=== PATIENT | female | born 1955 | race Caucasian/White ===

== ENCOUNTER 2017-09-18 17:18 | Emergency (ER) | payer MEDICARE, MEDICAID ==
[2017-09-18 17:38] LABS: BASO % 0.5 % (0-6); EOS % 3.5 % (0-6); GRAN % 55.5 % (47-80); HEMATOCRIT 39.5 % (35.0-47.0); HEMOGLOBIN 12.8 gm/dl (11.6-16.0); MEAN CELL VOLUME 89.8 fl (81-97); MEAN CORPUSCULAR HEMOGLOBIN 29.1 pg (27-33); MEAN CORPUSCULAR HGB CONC 32.4 g/dl (32-36); MEAN PLATELET VOLUME 8.5 fl (7.4-10.4); MONO % 11.5 % (0-9); PLATELET COUNT 384 K/uL (130-400); RED CELL DISTRIBUTION WIDTH 14.2 % (11.5-14.5); WHITE BLOOD COUNT W/O DIFF 5.7 K/uL (4.2-12.2)
--- NOTE | 2017-09-18 17:42 | Emergency Department Record ---
History of Present Illness - General Chief complaint: Head Injury Stated complaint: HEAD WOUND Time Seen by Provider: 09/18/17 17:22 Source: Patient - History of Present Illness Initial comments: patient slipped on a dog toy and hit the back of head and posterior right chest. alert NO LOC , no nausea or vomiting. ambulating without problems. - Related Data Home Medications Medication Instructions Recorded Confirmed Last Taken Alprazolam 1 mg PO ASDIR 09/18/17 09/18/17 Unknown Atorvastatin Calcium 40 mg PO DAILY 09/18/17 09/18/17 Unknown Bisacodyl [Laxative] 5 mg PO QHS 09/18/17 09/18/17 Unknown Carvedilol [Coreg] 3.125 mg PO BID 09/18/17 09/18/17 Unknown Citalopram Hydrobromide [Celexa] 40 mg PO DAILY 09/18/17 09/18/17 Unknown Hydrocodone/Acetaminophen 1 tab PO Q6H PRN 09/18/17 09/18/17 Unknown [Hydrocodone/Acetaminophen 7.5mg/325mg] Lisinopril 2.5 mg PO DAILY 09/18/17 09/18/17 Unknown Methyl Salicylate/Menthol 2 each TP QHS 09/18/17 09/18/17 Unknown [Salonpas Patch] Metoclopramide HCl 10 mg PO BID 09/18/17 09/18/17 Unknown Multivitamin [Multi-Vitamin Daily] 1 each PO DAILY 09/18/17 09/18/17 Unknown Nitroglycerin 0.4 mg SL ASDIR 09/18/17 09/18/17 Unknown Orphenadrine Citrate [Norflex] 100 mg PO BID 09/18/17 09/18/17 Unknown Triamterene/Hydrochlorothiazid 1 each PO DAILY 09/18/17 09/18/17 Unknown [Triamterene-Hctz 37.5-25 mg Cp] Vitamin E 400 unit PO DAILY 09/18/17 09/18/17 Unknown Warfarin Sodium 3 mg PO DAILY 09/18/17 09/18/17 Unknown Zolpidem Tartrate 10 mg PO ASDIR 09/18/17 09/18/17 Unknown Allergies/Adverse reactions: Allergies Allergy/AdvReac Type Severity Reaction Status Date / Time amoxicillin Allergy PT UNSURE Verified 09/18/17 17:39 OF REACTION aspirin Allergy PT UNSURE Verified 09/18/17 17:39 OF REACTION azithromycin Allergy PT UNSURE Verified 09/18/17 17:39 OF REACTION Beta-Blockers Allergy PT UNSURE Verified 09/18/17 17:39 (Beta-Adrenergic Bloc OF REACTION bismuth subsalicylate Allergy PT UNSURE Verified 09/18/17 17:39 OF REACTION carvedilol Allergy PT UNSURE Verified 09/18/17 17:39 OF REACTION celecoxib Allergy PT UNSURE Verified 09/18/17 17:39 OF REACTION cholestyramine Allergy PT UNSURE Verified 09/18/17 17:39 OF REACTION clopidogrel Allergy PT UNSURE Verified 09/18/17 17:39 OF REACTION cyclobenzaprine Allergy PT UNSURE Verified 09/18/17 17:39 OF REACTION doxycycline Allergy PT UNSURE Verified 09/18/17 17:39 OF REACTION eletriptan Allergy PT UNSURE Verified 09/18/17 17:39 OF REACTION fluoxetine Allergy PT UNSURE Verified 09/18/17 17:39 OF REACTION flurbiprofen Allergy PT UNSURE Verified 09/18/17 17:39 OF REACTION ibuprofen Allergy PT UNSURE Verified 09/18/17 17:39 OF REACTION isosorbide Allergy PT UNSURE Verified 09/18/17 17:39 OF REACTION levofloxacin Allergy PT UNSURE Verified 09/18/17 17:39 OF REACTION lisinopril Allergy PT UNSURE Verified 09/18/17 17:39 OF REACTION metaxalone Allergy PT UNSURE Verified 09/18/17 17:39 OF REACTION montelukast Allergy PT UNSURE Verified 09/18/17 17:39 OF REACTION polyethylene glycol 3350 Allergy PT UNSURE Verified 09/18/17 17:39 OF REACTION prednisone Allergy PT UNSURE Verified 09/18/17 17:39 OF REACTION propranolol Allergy PT UNSURE Verified 09/18/17 17:39 OF REACTION sertraline Allergy PT UNSURE Verified 09/18/17 17:39 OF REACTION sucrose Allergy PT UNSURE Verified 09/18/17 17:39 OF REACTION topiramate Allergy PT UNSURE Verified 09/18/17 17:39 OF REACTION Review of Systems Reviewed: No additional complaints except as noted below Constitutional: Reports: As per HPI. Denies: Chills, Fever, Malaise, Night sweats, Weakness, Weight change Eyes: Reports: As per HPI. Denies: Eye discharge, Eye pain, Photophobia, Vision change ENT: Reports: As per HPI. Denies: Congestion, Dental pain, Ear pain, Epistaxis , Hearing loss, Throat pain Respiratory: Reports: As per HPI. Denies: Cough, Dyspnea, Hemoptysis, Stridor, Wheezes Cardiovascular: Reports: As per HPI. Denies: Arrhythmia, Chest pain, Dyspnea on exertion, Edema, Murmurs, Orthopnea, Palpitations, Paroxysmal nocturnal dyspnea, Rheumatic Fever, Syncope Endocrine: Reports: As per HPI. Denies: Fatigue, Heat or cold intolerance, Polydipsia, Polyuria Gastrointestinal: Reports: As per HPI. Denies: Abdominal pain, Constipation, Diarrhea, Hematemesis, Hematochezia, Melena, Nausea, Vomiting Genitourinary: Reports: As per HPI. Denies: Abnormal menses, Discharge, Dyspareunia, Dysuria, Frequency, Hematuria, Incontinence, Retention, Urgency Musculoskeletal: Reports: As per HPI. Denies: Arthralgia, Back pain, Gout, Joint swelling, Myalgia, Neck pain Skin: Reports: As per HPI. Denies: Bruising, Change in color, Change in hair/ nails, Lesions, Pruritus, Rash Neurological: Reports: As per HPI. Denies: Abnormal gait, Confusion, Headache, Numbness, Paresthesias, Seizure, Tingling, Tremors, Vertigo, Weakness Psychiatric: Reports: As per HPI. Denies: Anxiety, Auditory hallucinations, Depression, Homicidal thoughts, Suicidal thoughts, Visual hallucinations Hematological/Lymphatic: Reports: As per HPI. Denies: Anemia, Blood Clots, Easy bleeding, Easy bruising, Swollen glands Physical Exam - General General Appearance: Alert, Oriented x3, Cooperative, No acute distress - Head Head exam: Normal inspection - Eye Eye exam: Normal appearance, PERRL Pupils: Normal accommodation - ENT ENT exam: Normal exam, Mucous membranes moist, Normal external ear exam, Normal orophraynx, TM's normal bilaterally Ear exam: Normal external inspection. negative: External canal tenderness Nasal Exam: Normal inspection. negative: Discharge, Sinus tenderness Mouth exam: Normal external inspection, Tongue normal Teeth exam: Normal inspection. negative: Dental caries Throat exam: Normal inspection. negative: Tonsillar erythema, Tonsillar exudate - Neck Neck exam: Normal inspection, Full ROM. negative: Tenderness - Respiratory Respiratory exam: Normal lung sounds bilaterally. negative: Respiratory distress - Cardiovascular Cardiovascular Exam: Regular rate, Normal rhythm, Normal heart sounds - GI/Abdominal GI/Abdominal exam: Soft, Normal bowel sounds. negative: Tenderness - Rectal Rectal exam: Deferred - exam: Deferred - Extremities Extremities exam: Normal inspection, Full ROM, Normal capillary refill. negative: Tenderness - Back Back exam: Reports: Normal inspection, Full ROM. Denies: Muscle spasm, Rash noted, Tenderness - Neurological Neurological exam: Alert, Normal gait, Oriented X3, Reflexes normal - Psychiatric Psychiatric exam: Normal affect, Normal mood - Skin Skin exam: Dry, Intact, Normal color, Warm Medical Decision Making - Data Complexity MDM Data: Labs Ordered and/or Reviewed (INR 4.5, K 3.1), X-Ray Ordered and/or Reviewed (CT head and neck negative for fractures) - Lab Data Result diagrams: 09/18/17 17:30 09/18/17 17:30 Lab Results 09/18/17 Range/Units 17:30 WBC 5.7 (4.2-12.2) K/uL RBC 4.40 (3.80-5.40) M/uL Hgb 12.8 (11.6-16.0) gm/dl Hct 39.5 (35.0-47.0) % MCV 89.8 (81-97) fl MCH 29.1 (27-33) pg MCHC 32.4 (32-36) g/dl RDW 14.2 (11.5-14.5) % Plt Count 384 (130-400) K/uL MPV 8.5 (7.4-10.4) fl Gran % 55.5 (47-80) % Lymphocytes % 29.0 (16-45) % Monocytes % 11.5 H (0-9) % Eosinophils % 3.5 (0-6) % Basophils % 0.5 (0-6) % Disposition Clinical Impression: Contusion of head Qualifiers: Encounter type: initial encounter Contusion of head detail: scalp Qualified Code(s): S00.03XA - Contusion of scalp, initial encounter Cervical strain Qualifiers: Encounter type: initial encounter Qualified Code(s): S16.1XXA - Strain of muscle, fascia and tendon at neck level, initial encounter Contusion, chest wall Qualifiers: Encounter type: initial encounter Laterality: right Qualified Code(s): S20.211A - Contusion of right front wall of thorax, initial encounter Disposition: Home, Self-Care Condition: (1) Good Instructions: Concussion (ED), Contusion in Adults (ED) Additional Instructions: stop coumadin till saturday No aspirin follow up with family in one week any symptoms return to ED Forms: Patient Portal Access Time of Disposition: 18:08 Quality - Quality Measures Quality Measures: N/A - Blood Pressure Screening Does Patient Have Any of the Following: No Blood Pressure Classification: Pre-Hypertensive BP Reading Systolic Measurement: 127 Diastolic Measurement: 72 Screening for High Blood Pressure: < Pre-Hypertensive BP, F/U Documented > [ G8950] Pre-Hypertensive Follow-up Interventions: Referral to alternative/primary care provider.
--- NOTE | 2017-09-18 17:43 | Emergency Department Record ---
History of Present Illness - General Chief complaint: Head Injury Stated complaint: HEAD WOUND Time Seen by Provider: 09/18/17 17:22 - Related Data Home Medications Medication Instructions Recorded Confirmed Last Taken Alprazolam 1 mg PO ASDIR 09/18/17 09/18/17 Unknown Atorvastatin Calcium 40 mg PO DAILY 09/18/17 09/18/17 Unknown Bisacodyl [Laxative] 5 mg PO QHS 09/18/17 09/18/17 Unknown Carvedilol [Coreg] 3.125 mg PO BID 09/18/17 09/18/17 Unknown Citalopram Hydrobromide [Celexa] 40 mg PO DAILY 09/18/17 09/18/17 Unknown Hydrocodone/Acetaminophen 1 tab PO Q6H PRN 09/18/17 09/18/17 Unknown [Hydrocodone/Acetaminophen 7.5mg/325mg] Lisinopril 2.5 mg PO DAILY 09/18/17 09/18/17 Unknown Methyl Salicylate/Menthol 2 each TP QHS 09/18/17 09/18/17 Unknown [Salonpas Patch] Metoclopramide HCl 10 mg PO BID 09/18/17 09/18/17 Unknown Multivitamin [Multi-Vitamin Daily] 1 each PO DAILY 09/18/17 09/18/17 Unknown Nitroglycerin 0.4 mg SL ASDIR 09/18/17 09/18/17 Unknown Orphenadrine Citrate [Norflex] 100 mg PO BID 09/18/17 09/18/17 Unknown Triamterene/Hydrochlorothiazid 1 each PO DAILY 09/18/17 09/18/17 Unknown [Triamterene-Hctz 37.5-25 mg Cp] Vitamin E 400 unit PO DAILY 09/18/17 09/18/17 Unknown Warfarin Sodium 3 mg PO DAILY 09/18/17 09/18/17 Unknown Zolpidem Tartrate 10 mg PO ASDIR 09/18/17 09/18/17 Unknown Allergies/Adverse reactions: Allergies Allergy/AdvReac Type Severity Reaction Status Date / Time amoxicillin Allergy PT UNSURE Verified 09/18/17 17:39 OF REACTION aspirin Allergy PT UNSURE Verified 09/18/17 17:39 OF REACTION azithromycin Allergy PT UNSURE Verified 09/18/17 17:39 OF REACTION Beta-Blockers Allergy PT UNSURE Verified 09/18/17 17:39 (Beta-Adrenergic Bloc OF REACTION bismuth subsalicylate Allergy PT UNSURE Verified 09/18/17 17:39 OF REACTION carvedilol Allergy PT UNSURE Verified 09/18/17 17:39 OF REACTION celecoxib Allergy PT UNSURE Verified 09/18/17 17:39 OF REACTION cholestyramine Allergy PT UNSURE Verified 09/18/17 17:39 OF REACTION clopidogrel Allergy PT UNSURE Verified 09/18/17 17:39 OF REACTION cyclobenzaprine Allergy PT UNSURE Verified 09/18/17 17:39 OF REACTION doxycycline Allergy PT UNSURE Verified 09/18/17 17:39 OF REACTION eletriptan Allergy PT UNSURE Verified 09/18/17 17:39 OF REACTION fluoxetine Allergy PT UNSURE Verified 09/18/17 17:39 OF REACTION flurbiprofen Allergy PT UNSURE Verified 09/18/17 17:39 OF REACTION ibuprofen Allergy PT UNSURE Verified 09/18/17 17:39 OF REACTION isosorbide Allergy PT UNSURE Verified 09/18/17 17:39 OF REACTION levofloxacin Allergy PT UNSURE Verified 09/18/17 17:39 OF REACTION lisinopril Allergy PT UNSURE Verified 09/18/17 17:39 OF REACTION metaxalone Allergy PT UNSURE Verified 09/18/17 17:39 OF REACTION montelukast Allergy PT UNSURE Verified 09/18/17 17:39 OF REACTION polyethylene glycol 3350 Allergy PT UNSURE Verified 09/18/17 17:39 OF REACTION prednisone Allergy PT UNSURE Verified 09/18/17 17:39 OF REACTION propranolol Allergy PT UNSURE Verified 09/18/17 17:39 OF REACTION sertraline Allergy PT UNSURE Verified 09/18/17 17:39 OF REACTION sucrose Allergy PT UNSURE Verified 09/18/17 17:39 OF REACTION topiramate Allergy PT UNSURE Verified 09/18/17 17:39 OF REACTION Medical Decision Making - Lab Data Result diagrams: 09/18/17 17:30 09/18/17 17:30 Lab Results 09/18/17 Range/Units 17:30 WBC 5.7 (4.2-12.2) K/uL RBC 4.40 (3.80-5.40) M/uL Hgb 12.8 (11.6-16.0) gm/dl Hct 39.5 (35.0-47.0) % MCV 89.8 (81-97) fl MCH 29.1 (27-33) pg MCHC 32.4 (32-36) g/dl RDW 14.2 (11.5-14.5) % Plt Count 384 (130-400) K/uL MPV 8.5 (7.4-10.4) fl Gran % 55.5 (47-80) % Lymphocytes % 29.0 (16-45) % Monocytes % 11.5 H (0-9) % Eosinophils % 3.5 (0-6) % Basophils % 0.5 (0-6) % Disposition Clinical Impression: Contusion of head, Cervical strain, Contusion, chest wall Disposition: Home, Self-Care Condition: (1) Good Instructions: Concussion (ED), Contusion in Adults (ED) Additional Instructions: stop coumadin till saturday No aspirin follow up with family in one week any symptoms return to ED Forms: Patient Portal Access Quality - Quality Measures Quality Measures: N/A - Blood Pressure Screening Does Patient Have Any of the Following: No Blood Pressure Classification: Pre-Hypertensive BP Reading Systolic Measurement: 127 Diastolic Measurement: 72 Screening for High Blood Pressure: < Pre-Hypertensive BP, F/U Documented > [ G8950] Pre-Hypertensive Follow-up Interventions: Referral to alternative/primary care provider.
[2017-09-18 17:47] LABS: BLOOD UREA NITROGEN 6 mg/dL (8-23)
[2017-09-18 17:48] LABS: CREATININE 0.8 mg/dL (0.5-0.9); EST GLOMERULAR FILTRATION RATE > 60 mL/min
[2017-09-18 17:50] LABS: GLUCOSE,RANDOM 100 mg/dL (74-109); INR 4.23
[2017-09-18 17:52] LABS: PROTHROMBIN TIME (PATIENT) 46.3 SECONDS (9.5-12.1)
[2017-09-18 17:54] LABS: ACETAMINOPHEN < 5.0 ug/mL (10.0-30.0)
--- NOTE | 2017-09-19 16:11 | CT SCAN REPORT ---
EXAM: CT SCAN HEAD WO CONTRAST HISTORY: FALL. TECHNIQUE: CT brain without contrast. COMPARISON: None. FINDINGS: Globes are intact. Paranasal sinuses and mastoid air cells are unremarkable. No displaced or depressed skull fracture. No intra- or extra- axial hemorrhage. CT limited for evaluation of acute infarct. No CT evidence for large or territorial acute infarct. No mass or midline shift. Mild diffuse atrophy. Hypodensities in the periventricular and subcortical white matter likely sequelae of small vessel ischemic change. IMPRESSION: NEGATIVE FOR ACUTE INTRACRANIAL ABNORMALITY. MILD ATROPHY. SMALL VESSEL ISCHEMIC CHANGE. J[facility]BER: [id number] [facility]
--- NOTE | 2017-09-19 16:14 | CT SCAN REPORT ---
EXAM: CT SCAN CERVICAL SPINE WO CONTRAST HISTORY: FALL. TECHNIQUE: Axial CT images of the cervical spine with coronal and sagittal reconstructions. COMPARISON: None. FINDINGS: Evaluation of spinal canal contents is limited due to CT technique. However, vertebral body height and alignment are preserved. The atlantoaxial space is preserved. The lateral masses are not displaced. Degenerative change at multiple levels. Equivocal anterolisthesis of C3 on C4 likely developmental or degenerative in nature. Surrounding soft tissues are unremarkable. IMPRESSION: NO CT EVIDENCE FOR ACUTE C-SPINE ABNORMALITY. MULTILEVEL DEGENERATIVE CHANGE. JOB NUMBER: [id number] [facility]
--- NOTE | 2017-09-19 16:15 | RADIOLOGY REPORT ---
EXAM: CHEST 2 VIEWS HISTORY: CHEST PAIN. TECHNIQUE: Frontal and lateral views of the chest. COMPARISON: None. FINDINGS: Heart size at the upper limits of normal. Atheromatous change, thoracic aorta. Osteopenia. Left-sided pacing device. Lungs are clear. No pneumothorax. IMPRESSION: NO ACUTE CARDIOPULMONARY PROCESS. JOB NUMBER: [id number] [facility]
== END 2017-09-18 18:31 | disposition home or self-care (01) ==
LOC: ER 17:18
DX: S16.1XXA Strain of muscle, fascia and tendon at neck level, initial encounter (principal); S00.03XA Contusion of scalp, initial encounter; S20.211A Contusion of right front wall of thorax, initial encounter; I10 Essential (primary) hypertension; Z87.891 Personal history of nicotine dependence; W01.198A Fall on same level from slipping, tripping and stumbling with subsequent striking against other object, initial encounter; Z79.01 Long term (current) use of anticoagulants
CPT/HCPCS: 70450; 71046; 72125; 80048; 80320; 80329; 85025; 85610; 99283; 99284